=== PATIENT | female | born 1975 | race Native Hawaiian/Other Pacific Islander ===

== ENCOUNTER 2019-01-06 15:19 | Outpatient (CLI) | payer OTHER | END 2019-01-07 05:55 | disposition home or self-care (01) | LOC: RAD 15:19 | DX: Z76.89 Persons encountering health services in other specified circumstances (principal) ==

== ENCOUNTER 2019-01-10 14:01 | Outpatient (CLI) | payer OTHER | END 2019-01-10 21:47 | disposition home or self-care (01) | LOC: RAD 14:01 | DX: Z76.89 Persons encountering health services in other specified circumstances (principal) ==